=== PATIENT | male | born 1975 | race Caucasian/White ===

== ENCOUNTER 2018-07-02 10:47 | Inpatient (IN) | payer BC ==
[~2018-07-02] VITALS: Ht 167.6 cm; Wt 112.5 kg
[2018-07-02] MEDS ORDERED: ALBUTEROL SULFATE/IPRATROPIU 3 ML SOL IH ONE ×2 (11:05→11:25)
[2018-07-02 11:07] VITALS: BP 123/81
[2018-07-02] MEDS ORDERED: methylPREDNISolone SS 125 MG in WATER STERILE 2 ML IM ONE (11:25)
[2018-07-02] MEDS ORDERED: NACL 0.9% 1,000 ML IV ONE (12:40)
[2018-07-02] MEDS ORDERED: LEVOFLOXACIN 500 MG/D5W PREMIX 100 ML IV ONE (12:40)
[2018-07-02 13:04] LABS: HEMATOCRIT 44.9 % (36-52); HEMOGLOBIN 15.4 g/dL (12.0-18.0); MEAN CORPUSCULAR HEMOGLOBIN 32 pg (27-31); MEAN CORPUSCULAR HGB CONC 34 g/dL (33-37); MEAN CORPUSCULAR VOLUME 92.7 fL (80-94); PLATELET COUNT (AUTO) 274 K/uL (140-450); RED BLOOD CELL COUNT(AUTO) 4.85 MIL/uL (4.20-6.10); RED CELL DISTRIBUTION WIDTH 13.1 % (11.6-13.7); WHITE BLOOD COUNT (AUTO) 16.5 K/uL (4.8-10.8)
[2018-07-02] MEDS ORDERED: DOCUSATE SODIUM 100 MG GELCAP PO PRN (13:35)
[2018-07-02] MEDS ORDERED: HYDROcodone/APAP 7.5/325 MG 1 TAB PO PRN (13:35)
[2018-07-02] MEDS ORDERED: ACETAMINOPHEN 325 MG TAB PO PRN (13:35)
[2018-07-02] MEDS ORDERED: ONDANSETRON 4 MG/2 ML VIAL IM/IVP PRN (13:35)
[2018-07-02 13:45] VITALS: BP 132/82
[2018-07-02 13:56] LABS: ANION GAP 9.4 (8-16); CARBON DIOXIDE 30.4 mmol/L (21-32); POTASSIUM 2.8 mmol/L (3.5-5.1)
[2018-07-02 13:57] LABS: CREATININE 0.9 mg/dL (0.7-1.3)
[2018-07-02 13:58] LABS: TOTAL BILIRUBIN 0.5 mg/dL (0.0-1.0)
[2018-07-02 13:59] LABS: ALBUMIN 3.9 g/dL (3.4-5.0)
[2018-07-02] MEDS: NACL 0.9% 1,000 ML IV SCH ×2 (14:00→23:31)
[2018-07-02 14:20] LABS: EOSINOPHILS % (MANUAL) 10 % (0-4); LYMPHOCYTES % (MANUAL) 18 % (20-46); MONOCYTES % (MANUAL) 4 % (5-12)
[2018-07-02] MEDS ORDERED: FAMOTIDINE 20 MG TAB PO SCH (15:00)
[2018-07-02] MEDS ORDERED: LORATADINE 10 MG TAB PO SCH (15:00)
[2018-07-02] MEDS ORDERED: POTASSIUM CHLORIDE 40 MEQ, LIDOCAINE 1% 25 MG in NACL 0.9% 250 ML IV SCH (15:30)
[2018-07-02 15:37] LABS: PHOSPHORUS 2.8 mg/dL (2.5-4.9)
[2018-07-02 15:40] LABS: CHOL/HDL RATIO 4.1 (1-4.5); THYROID STIMULATING HORMONE 1.17 uIU/mL (0.34-3.74)
[2018-07-02 16:00] VITALS: BP 155/83
[2018-07-02] MEDS: BUDESONIDE 0.5 MG/2 ML NEBU INH SCH (18:57)
[2018-07-02] MEDS: ALBUTEROL SULFATE/IPRATROPIU 3 ML SOL IH SCH (18:57)
[2018-07-02 20:00] VITALS: BP 143/84
[2018-07-02] MEDS: POTASSIUM CHLORIDE 10 MEQ TABER PO SCH (20:56)
[2018-07-02] MEDS: methylPREDNISolone SS 125 MG/2 ML VIAL IVP SCH (20:57)
[2018-07-02 21:01] LABS: APPEARANCE,URINE CLEAR (CLEAR); BILIRUBIN,URINE NEGATIVE (NEGATIVE); BLOOD, URINE NEGATIVE (NEGATIVE); COLOR,URINE YELLOW (YELLOW); LEUKOCYTE ESTERASE ,URINE NEGATIVE (NEGATIVE); NITRITE, URINE NEGATIVE (NEGATIVE); UGLUCOSE NEGATIVE (NEGATIVE)
[2018-07-02] MEDS: PROMETH/CODEINE 6.25-10MG/5ML 5 ML UDC PO PRN (21:16)
[2018-07-02 21:24] LABS: BARBITURATE, URINE NEGATIVE ng/ml (NEG <=200); BENZODIAZEPINE, URINE NEGATIVE ng/mL (NEG <=200); CANNABINOID, URINE NEGATIVE ng/mL (NEG <=50); COCAINE, URINE NEGATIVE ng/mL (NEG <=300); OPIATE, URINE NEGATIVE ng/mL (NEG <=2000); PHENCYCLIDINE SCREEN,URINE NEGATIVE ng/mL (NEG <=25)
[2018-07-02] MEDS: ALBUTEROL SULFATE/IPRATROPIU 3 ML SOL IH PRN ×2 (23:38→23:47)
[2018-07-03] VITALS: BP 135/75
[2018-07-03 04:00] VITALS: BP 140/74
[2018-07-03] MEDS: PROMETH/CODEINE 6.25-10MG/5ML 5 ML UDC PO PRN ×3 (04:08→20:35)
[2018-07-03] MEDS: methylPREDNISolone SS 125 MG/2 ML VIAL IVP SCH ×2 (04:08→12:34)
[2018-07-03 06:27] LABS: T4 (THYROXINE) 7.8 ug/dL (4.5-12.0)
[2018-07-03] MEDS: BUDESONIDE 0.5 MG/2 ML NEBU INH SCH ×2 (07:20→20:00)
[2018-07-03] MEDS: ALBUTEROL SULFATE/IPRATROPIU 3 ML SOL IH SCH ×3 (07:20→20:00)
[2018-07-03 07:28] VITALS: BP 149/77
[2018-07-03 07:37] LABS: BASOPHILS % (AUTO) 0.1 % (0.0-2.0); EOSINOPHILS % (AUTO) 0.1 % (0.0-4.0); HEMATOCRIT 41.7 % (36-52); HEMOGLOBIN 14.2 g/dL (12.0-18.0); LYMPHOCYTES % (AUTO) 10.2 % (20.5-51.1); MEAN CORPUSCULAR HEMOGLOBIN 32 pg (27-31); MEAN CORPUSCULAR HGB CONC 34 g/dL (33-37); MEAN CORPUSCULAR VOLUME 93.6 fL (80-94); MONOCYTES # (AUTO) 0.5 K/uL (0.8-1.0); MONOCYTES % (AUTO) 2.4 % (1.7-9.3); NEUTROPHILS # (AUTO) 16.9 K/uL (1.8-7.7); NEUTROPHILS % (AUTO) 87.2 % (42.2-75.2); PLATELET COUNT (AUTO) 279 K/uL (140-450); RED BLOOD CELL COUNT(AUTO) 4.45 MIL/uL (4.20-6.10); RED CELL DISTRIBUTION WIDTH 13.3 % (11.6-13.7); WHITE BLOOD COUNT (AUTO) 19.4 K/uL (4.8-10.8)
[2018-07-03 07:50] LABS: ANION GAP 13.4 (8-16); POTASSIUM 3.4 mmol/L (3.5-5.1)
[2018-07-03] MEDS: POTASSIUM CHLORIDE 10 MEQ TABER PO SCH (08:57)
[2018-07-03] MEDS: FAMOTIDINE 20 MG TAB PO SCH (08:58)
[2018-07-03] MEDS: NACL 0.9% 1,000 ML IV SCH ×2 (08:58→20:39)
[2018-07-03] MEDS: LORATADINE 10 MG TAB PO SCH (08:58)
[2018-07-03] MEDS ORDERED: LOSARTAN 25 MG TAB PO SCH (09:00)
[2018-07-03] MEDS ORDERED: POTASSIUM CHLORIDE 10 MEQ TABER PO SCH (10:30)
[2018-07-03 12:00] VITALS: BP 144/77
[2018-07-03] MEDS: ALBUTEROL SULFATE/IPRATROPIU 3 ML SOL IH PRN ×2 (15:17→23:27)
[2018-07-03] MEDS ORDERED: INFLUENZA VIRUS VACCINE QUAD 0.5 ML SYR IMVAC SCH (15:55)
[2018-07-03 16:00] VITALS: BP 107/89
[2018-07-03] MEDS ORDERED: guaiFENesin 600 MG TABER PO SCH (16:30)
[2018-07-03] MEDS ORDERED: NACL 0.9% 1,000 ML IV SCH (17:20)
[2018-07-03 20:00] VITALS: BP 139/88
[2018-07-03] MEDS: methylPREDNISolone SS 40 MG/ML VIAL IVP SCH (20:35)
[2018-07-04] VITALS: BP 125/80
[2018-07-04 04:00] VITALS: BP 118/64
[2018-07-04] MEDS: methylPREDNISolone SS 40 MG/ML VIAL IVP SCH ×2 (04:16→12:59)
[2018-07-04] MEDS: PROMETH/CODEINE 6.25-10MG/5ML 5 ML UDC PO PRN (04:16)
[2018-07-04] MEDS: NACL 0.9% 1,000 ML IV SCH ×3 (04:22→19:27)
[2018-07-04 06:06] LABS: HEMATOCRIT 41.5 % (36-52); HEMOGLOBIN 13.8 g/dL (12.0-18.0); MEAN CORPUSCULAR HEMOGLOBIN 31 pg (27-31); MEAN CORPUSCULAR HGB CONC 33 g/dL (33-37); MEAN CORPUSCULAR VOLUME 94.6 fL (80-94); PLATELET COUNT (AUTO) 283 K/uL (140-450); RED BLOOD CELL COUNT(AUTO) 4.39 MIL/uL (4.20-6.10); RED CELL DISTRIBUTION WIDTH 13.6 % (11.6-13.7); WHITE BLOOD COUNT (AUTO) 27.7 K/uL (4.8-10.8)
[2018-07-04 06:49] LABS: LYMPHOCYTES % (MANUAL) 6 % (20-46); MONOCYTES % (MANUAL) 4 % (5-12)
[2018-07-04] MEDS ORDERED: LEVOFLOXACIN 750 MG/D5W PREMIX 150 ML IV SCH (07:00)
[2018-07-04 07:02] LABS: ANION GAP 15.4 (8-16); CARBON DIOXIDE 25.2 mmol/L (21-32); CREATININE 1.1 mg/dL (0.7-1.3); POTASSIUM 3.6 mmol/L (3.5-5.1)
[2018-07-04] MEDS: ALBUTEROL SULFATE/IPRATROPIU 3 ML SOL IH SCH ×3 (07:44→18:49)
[2018-07-04] MEDS: BUDESONIDE 0.5 MG/2 ML NEBU INH SCH ×2 (07:44→18:49)
[2018-07-04 08:00] VITALS: BP 156/95
[2018-07-04] MEDS ORDERED: INSULIN REGULAR, HUMAN 100 UNIT/ML VIAL SUBQ SCH (08:36)
[2018-07-04] MEDS ORDERED: guaiFENesin 600 MG TABER PO SCH (09:00)
[2018-07-04] MEDS: MONTELUKAST SODIUM 10 MG TAB PO SCH (09:01)
[2018-07-04] MEDS: FAMOTIDINE 20 MG TAB PO SCH (09:01)
[2018-07-04] MEDS: LORATADINE 10 MG TAB PO SCH (09:01)
[2018-07-04 12:00] VITALS: BP 136/86
[2018-07-04 16:00] VITALS: BP 148/96
[2018-07-04] MEDS ORDERED: LOSA100T25 PO (16:50)
[2018-07-04] MEDS ORDERED: LOSARTAN 25 MG TAB PO SCH (17:00)
[2018-07-04 20:00] VITALS: BP 136/87
[2018-07-05] VITALS: BP 146/91
[2018-07-05 04:00] VITALS: BP 126/75
[2018-07-05] MEDS: NACL 0.9% 1,000 ML IV SCH (05:32)
[2018-07-05 06:32] LABS: BASOPHILS % (AUTO) 0.1 % (0.0-2.0); EOSINOPHILS % (AUTO) 0.1 % (0.0-4.0); WHITE BLOOD COUNT (AUTO) 22.2 K/uL (4.8-10.8)
[2018-07-05 06:42] LABS: HEMATOCRIT 40.8 % (36-52); HEMOGLOBIN 13.4 g/dL (12.0-18.0); LYMPHOCYTES # (AUTO) 3.9 K/uL (2.0-11.5); LYMPHOCYTES % (AUTO) 17.3 % (20.5-51.1); MEAN CORPUSCULAR HEMOGLOBIN 31 pg (27-31); MEAN CORPUSCULAR HGB CONC 33 g/dL (33-37); MEAN CORPUSCULAR VOLUME 94.7 fL (80-94); MONOCYTES # (AUTO) 1.7 K/uL (0.8-1.0); MONOCYTES % (AUTO) 7.5 % (1.7-9.3); NEUTROPHILS # (AUTO) 16.7 K/uL (1.8-7.7); PLATELET COUNT (AUTO) 268 K/uL (140-450); RED BLOOD CELL COUNT(AUTO) 4.31 MIL/uL (4.20-6.10); RED CELL DISTRIBUTION WIDTH 13.3 % (11.6-13.7)
[2018-07-05 06:44] LABS: ANION GAP 8.1 (8-16); CARBON DIOXIDE 31.3 mmol/L (21-32); CREATININE 0.9 mg/dL (0.7-1.3); POTASSIUM 3.4 mmol/L (3.5-5.1)
[2018-07-05] MEDS: ALBUTEROL SULFATE/IPRATROPIU 3 ML SOL IH SCH ×2 (07:01→13:06)
[2018-07-05] MEDS: BUDESONIDE 0.5 MG/2 ML NEBU INH SCH (07:01)
[2018-07-05 08:00] VITALS: BP 136/76
[2018-07-05] MEDS: LORATADINE 10 MG TAB PO SCH (08:50)
[2018-07-05] MEDS: MONTELUKAST SODIUM 10 MG TAB PO SCH (08:50)
[2018-07-05] MEDS: FAMOTIDINE 20 MG TAB PO SCH (08:50)
[2018-07-05] MEDS ORDERED: LOSARTAN 25 MG TAB PO SCH (09:00)
[2018-07-05] MEDS ORDERED: POTASSIUM CHLORIDE 10 MEQ TABER PO SCH (09:00)
[2018-07-05] MEDS ORDERED: FAMO20TA13 PO (09:39)
[2018-07-05] MEDS ORDERED: LOSA25TA1 PO (09:39)
[2018-07-05] MEDS ORDERED: PRED10TA99 PO (09:39)
[2018-07-05] MEDS ORDERED: LORA10TA19 PO (09:39)
[2018-07-05] MEDS ORDERED: MONT10TA35 PO (09:39)
[2018-07-05] MEDS ORDERED: PUL.5N INH (09:39)
[2018-07-05] MEDS ORDERED: ALBU0.0912 IH (09:46)
[2018-07-05 12:00] VITALS: BP 140/88
[2018-07-05 14:18] VITALS: BP 136/76
== END 2018-07-05 15:45 | disposition home or self-care (01) | DRG 202 ==
LOC: MED 10:47 → MTU 12:56
PROVIDERS: ADMIT General Practice; ATTEND General Practice
DX: J45.901 Unspecified asthma with (acute) exacerbation (principal); R65.10 Systemic inflammatory response syndrome (SIRS) of non-infectious origin without acute organ dysfunction; E66.2 Morbid (severe) obesity with alveolar hypoventilation; Z68.41 Body mass index [BMI] 40.0-44.9, adult; J20.9 Acute bronchitis, unspecified; I10 Essential (primary) hypertension; K21.9 Gastro-esophageal reflux disease without esophagitis; E87.6 Hypokalemia; R06.03 Acute respiratory distress; Z88.0 Allergy status to penicillin; Z90.49 Acquired absence of other specified parts of digestive tract; Z87.891 Personal history of nicotine dependence
CPT/HCPCS: 36415; 36600; 70450; 71045; 76604; 80048; 80053; 80305; 81003; 82140; 82803; 82948; 83036; 83605; 83735; 83880; 84100; 84436; 84443; 84479; 85025; 87040; 87081; 87086; 93005; 93880; 94640; 96365; 96372; 99285; J1815; J1956; J2001; J2920; J2930; J3480; J7030; J7620; J7626; Q0092